=== PATIENT | female | born 1965 | race Caucasian/White ===

== ENCOUNTER → 2024-10-17 | Outpatient (CLI) | payer BC ==
[2024-10-17 15:29] LABS: Estradiol 29.6 pg/mL; Testosterone 75.8 ng/dL (7.00-45.62)
[2024-10-17 15:36] LABS: Follicle Stimulating Hormone 26.8 mIU/mL
== END | disposition home or self-care (01) ==
LOC: LABWHC1 11:48
PROVIDERS: ATTEND Obstetrics & Gynecology
DX: N95.1 Menopausal and female climacteric states (principal)
CPT/HCPCS: 36415; 82397; 82670; 83001; 84144; 84402; 84403